=== PATIENT | male | born 1985 | race African-American/Black ===

== ENCOUNTER 2019-02-20 21:41 | Emergency (ER) | payer MEDICAID ==
[~2019-02-20] VITALS: Ht 170.2 cm; Wt 62.0 kg
[2019-02-20 23:16] LABS: BASOPHILS % 0.9 % (0.0-2.0); EOSINOPHILS % 3.9 % (0.0-5.0); LYMPHOCYTES % 51.5 % (20.0-50.0); MEAN CORPUSCULAR HEMOGLOBIN 28.9 pg (28.0-32.0); MEAN CORPUSCULAR VOLUME 86.8 fL (80.0-94.0); MEAN PLATELET VOLUME 7.8 fl (7.4-10.4); MONOCYTES % 10.2 % (2.0-8.0); NEUTROPHILS % 33.5 % (40.0-76.0); PLATELET 215 x1000/uL (130-400); RED BLOOD CELL COUNT 4.49 mill/uL (4.7-6.1)
[2019-02-20 23:23] LABS: CHLORIDE 107 mEq/L (98-107)
[2019-02-20 23:27] LABS: ETHANOL BLOOD < 10 mg/dL
[2019-02-20 23:50] LABS: *AMPHETAMINES SCREEN URINE NEGATIVE (NEGATIVE); *BARBITURATES SCREEN URINE NEGATIVE (NEGATIVE); *BENZODIAZEPINES SCREEN URINE NEGATIVE (NEGATIVE); *COCAINE SCREEN URINE NEGATIVE (NEGATIVE); METHADONE URINE SCREEN NEGATIVE (NEGATIVE); OPIATES URINE SCREEN NEGATIVE (NEGATIVE)
[2019-02-20 23:51] LABS: CANNABINOID URINE SCREEN PRESUMTIVE POSITIVE (NEGATIVE); PHENCYCLIDINE URINE SCREEN NEGATIVE (NEGATIVE)
[2019-02-21 10:39] VITALS: BP 127/78
== END 2019-02-21 11:16 | disposition home or self-care (01) ==
LOC: ER 21:41
DX: R45.851 Suicidal ideations (principal); I10 Essential (primary) hypertension; R44.0 Auditory hallucinations; F17.290 Nicotine dependence, other tobacco product, uncomplicated
CPT/HCPCS: 36415; 80305; 80307; 80320; 80329; 93005; 99284; 99406; G0480